=== PATIENT | female | born 1940 | race Caucasian/White ===

== ENCOUNTER 2025-03-06 08:01 | Day surgery (SDC) | payer OTHER, MEDICARE ==
[2025-03-05 14:54] VITALS: BMI 28.5
[2025-03-06 08:30] VITALS: RESP 18
[2025-03-06 10:37] VITALS: TEMP 97.3
[2025-03-06 11:25] VITALS: BP 140/80; PULSE 72
== END 2025-03-06 11:20 | disposition home or self-care (01) ==
LOC: FASU-ENDO 08:01
PROVIDERS: ATTEND Internal Medicine Gastroenterology
PROC: 0DB68ZX Excision of Stomach, Via Natural or Artificial Opening Endoscopic, Diagnostic (ICD-10-PCS; 2025-03-06)
PROC: 0DJD8ZZ Inspection of Lower Intestinal Tract, Via Natural or Artificial Opening Endoscopic (ICD-10-PCS; principal; 2025-03-06 10:05)
DX: Z12.11 Encounter for screening for malignant neoplasm of colon (principal); K44.9 Diaphragmatic hernia without obstruction or gangrene; R10.13 Epigastric pain; K21.00 Gastro-esophageal reflux disease with esophagitis, without bleeding; K29.50 Unspecified chronic gastritis without bleeding
CPT/HCPCS: 88305-TC; 88342-TC

== ENCOUNTER 2025-05-18 07:05 | Day surgery (SDC) | payer OTHER, MEDICARE ==
[2025-05-16 15:31] VITALS: BMI 28.5
[2025-05-18 09:21] VITALS: RESP 16; TEMP 97.6
[2025-05-18 09:49] VITALS: BP 149/85; PULSE 56
== END 2025-05-18 09:45 | disposition home or self-care (01) ==
LOC: FASU-ENDO 07:05
PROVIDERS: ATTEND Internal Medicine Gastroenterology
PROC: 0DB78ZX Excision of Stomach, Pylorus, Via Natural or Artificial Opening Endoscopic, Diagnostic (ICD-10-PCS; 2025-05-18)
PROC: 0DB68ZX Excision of Stomach, Via Natural or Artificial Opening Endoscopic, Diagnostic (ICD-10-PCS; principal; 2025-05-18 08:50)
DX: K29.50 Unspecified chronic gastritis without bleeding (principal); K31.A12 Gastric intestinal metaplasia without dysplasia, involving the body (corpus); K22.89 Other specified disease of esophagus; K44.9 Diaphragmatic hernia without obstruction or gangrene
CPT/HCPCS: 88305-TC; 88342-TC